=== PATIENT | male | born 1960 | race Caucasian/White ===

== ENCOUNTER 2021-01-26 18:24 | Inpatient (IN) ==
[2021-01-26] MEDS ORDERED: Lidocaine 2% (CARDIAC or IV) 20 MG/ML 5 ML SYRINGE (100 MG) ONE (18:35)
[2021-01-26] MEDS ORDERED: Norepinephrine 16MCG/ML IVPRE 0 MCG/0 ML BAG IV ONE (18:53)
[2021-01-26] MEDS ORDERED: Bivalirudin 250 MG VIAL ONE (18:57)
[2021-01-26] MEDS ORDERED: VERAPAMIL 2.5 MG/ML 2 ML VIAL ** 5 mg/2 ml ONE (19:14)
[2021-01-26] MEDS ORDERED: Lidocaine 1% VIAL 10 MG/ML VIAL ONE (19:14)
[2021-01-26] MEDS ORDERED: Heparin 2 UNITS/ML 1000 mls 2,000 ML IV ONE (19:14)
[2021-01-26] MEDS ORDERED: Heparin 1,000 UNIT/ML 10 ml (10,000 UNITS) CATHLAB/DIALYSIS ONE (19:14)
[2021-01-26] MEDS ORDERED: nitroGLYCERIN DRIP 25,000 MCG/250 ML BTL ONE (19:14)
[2021-01-26] MEDS ORDERED: Iohexol 350 (CONTRAST) 200 ML MDV IV ONE (19:14)
[2021-01-26] MEDS ORDERED: NS 0.9% 1000 ml BAG 1,000 ML IV SCH (20:00)
[2021-01-26 20:35] LABS: ABS Lymphocytes 0.7 10^3/ul (1.0-4.8); ABS Monocytes 0.5 10^3/ul (0-0.8); ABS Neutrophils 9.8 10^3/ul (1.5-7.7); Eosinophil % 0.1 %; Hematocrit 41 % (42-52); Lymphocyte % 6.7 %; Mean Corpuscular HGB Conc 34 g/dL (31-36); Mean Corpuscular Hemoglobin 31 pg (27-31); Mean Corpuscular Volume 91 fL (80-94); Mean Platelet Volume 7.4 fL (7.4-10.4); Platelet Count 195 10^3/uL (150-450); Red Blood Count 4.51 10^6 /uL (4.18-5.48); Red Cell Distribution Width 14 % (10-15)
[2021-01-26 20:45] LABS: ALT 21 U/L (7-52); AST 77 U/L (13-39); Albumin 3.8 g/dL (3.2-5.2); Albumin/Globulin Ratio 1.6 (1-3); Alkaline Phosphatase 40 U/L (35-149); Anion Gap 5 mmol/L (2-11); Blood Urea Nitrogen 14 mg/dL (6-24); CO2 Carbon Dioxide 27 mmol/L (22-32); Calcium 8.8 mg/dL (8.6-10.3); Chloride 105 mmol/L (101-111); Globulin 2.4 g/dL (2-4); Glucose 114 mg/dL (70-100); Potassium 3.9 mmol/L (3.5-5.0); Sodium 137 mmol/L (135-145); Total Protein 6.2 g/dL (6.4-8.9)
[2021-01-26 21:00] LABS: INR 1.92 (0.86-1.15)
[2021-01-26 21:02] LABS: Troponin I 37.68 ng/mL (<0.03)
[2021-01-26 21:05] LABS: Activated Partial Thrombo Time 199.9 seconds (26.0-38.0)
[2021-01-26 21:33] LABS: Magnesium 1.9 mg/dL (1.9-2.7); Phosphorus 2.9 mg/dL (2.5-5.0)
[2021-01-26 22:58] LABS: Rapid COVID-19 Molecular Undetected (Undetected)
[2021-01-26] MEDS ORDERED: Magnesium Sulfate IV 1GM/100ML 1 GM/100 ML BAG IV ONE (23:19)
[2021-01-26] MEDS ORDERED: Potassium Chlor 20 meq TAB.ER PO ONE (23:19)
[2021-01-27 02:01] LABS: Troponin I > 80.00 ng/mL (<0.03)
[2021-01-27 06:17] LABS: ABS Lymphocytes 1.3 10^3/ul (1.0-4.8); ABS Monocytes 0.6 10^3/ul (0-0.8); ABS Neutrophils 6.2 10^3/ul (1.5-7.7); Eosinophil % 0.2 %; Hematocrit 40 % (42-52); Hemoglobin 13.8 g/dL (14.0-18.0); Lymphocyte % 16.3 %; Mean Corpuscular HGB Conc 34 g/dL (31-36); Mean Corpuscular Hemoglobin 32 pg (27-31); Mean Corpuscular Volume 92 fL (80-94); Mean Platelet Volume 7.7 fL (7.4-10.4); Nucleated Red Blood Cells % 0.1; Platelet Count 193 10^3/uL (150-450); Red Blood Count 4.37 10^6 /uL (4.18-5.48); Red Cell Distribution Width 14 % (10-15); White Blood Count 8.1 10^3/uL (3.5-10.8)
[2021-01-27 06:47] LABS: Anion Gap 5 mmol/L (2-11); Blood Urea Nitrogen 13 mg/dL (6-24); CO2 Carbon Dioxide 22 mmol/L (22-32); Calcium 8.6 mg/dL (8.6-10.3); Chloride 109 mmol/L (101-111); Cholesterol 181 mg/dL; Glucose 117 mg/dL (70-100); HDL Cholesterol 37.3 mg/dL; LDL Cholesterol 125 mg/dL; Potassium 3.8 mmol/L (3.5-5.0); Sodium 136 mmol/L (135-145); Triglycerides 93 mg/dL
[2021-01-27 06:53] LABS: Troponin I > 80.00 ng/mL (<0.03)
[2021-01-27 11:48] LABS: Troponin I 44.89 ng/mL (<0.03)
[2021-01-28 11:14] VITALS: BP 109/67
== END 2021-01-28 12:01 | disposition home or self-care (01) | DRG 247 ==
LOC: ED 18:24 → CHICATH 18:35 → ICU 18:40 → MEDTELE 01-27 15:43
PROVIDERS: ATTEND Internal Medicine